=== PATIENT | female | born 1990 | race Hispanic/Latino ===

== ENCOUNTER → 2023-11-26 13:39 | Outpatient (REF) | payer MEDICAID, SELFPAY | LOC: CPAP 13:39 | PROVIDERS: ATTENDING PHYSICIAN Nurse Practitioner Adult Health | DX: N76.0 Acute vaginitis (principal); Z12.4 Encounter for screening for malignant neoplasm of cervix | CPT/HCPCS: 87491; 87591; 87624 ==

== ENCOUNTER 2024-08-26 20:36 | Emergency (ER) | payer SELFPAY ==
[2024-08-26 20:54] VITALS: BP 143/93
[2024-08-26 22:37] VITALS: BP 142/94
--- NOTE | 2024-08-26 23:37 | ED.GENMED ---
History of Present Illness
General
Chief Complaint: Breathing Problem
Time Seen by Provider: 08/26/24 23:37
History of Present Illness
History of Present Illness:
TIME OF INITIAL ENCOUNTER: 11:40 PM
HPI: Patient presents due to shortness of breath. She has a history of asthma. She could not use the nebulizer that she has at home as she has no albuterol. She states that steroids have helped her when she got like this in the past. She does
have an associated headache.
EXAM:
GENERAL: Well appearing in no distress
HEENT: Moist oral mucosa
CARDIOVASCULAR: No murmurs, normal heart rate, regular rhythm, No chest wall tenderness
PULMONARY: Very minimal increased work of breathing, breath sounds are just slightly diminished equally with no wheeze
ABDOMEN: Soft with no peritoneal signs, no tenderness
NEUROLOGIC: Excellent strength all extremities, no coordination deficits
PSYCHIATRIC: Appropriate mental status, normal insight and judgement
EXTREMITIES: Nontender, no edema, moves all extremities equally
SKIN: No rash, no lesions
NUMBER AND COMPLEXITY OF PROBLEMS ADDRESSED AT THE ENCOUNTER
� Chronic conditions affecting care: Asthma
� Acute Exacerbation and/or Progression of Chronic Illness: This is an acute problem
� Differential Diagnosis includes: Asthma exacerbation, pneumonia, bronchitis, reactive airway disease
AMOUNT AND/OR COMPLEXITY OF DATA TO BE REVIEWED AND ANALYZED
� I performed an independent evaluation of and my interpretation is:
EKG:
CT:
X-rays: Chest x-ray shows no acute abnormality
Laboratory Studies: Urinalysis shows no blood or signs of infection.
Other:
� Review of other/old records: The patient was seen here in 2021 with a viral syndrome and also in 2019 with an asthma exacerbation related to COVID
� Clinical information was obtained by an independent historian: Spoke to mother at bedside
� Prescriptions/Medications Considered but not given:
� Further testing considered but not performed:
RISK OF COMPLICATIONS AND/OR MORBIDITY OR MORTALITY OF PATIENT MANAGEMENT
� Social determinants of health affecting care: Lives at home
� Discussion with other providers:
� Escalation of care including admission/observation vs risk of discharge considered: The patient primarily is concerned of shortness of breath related to asthma. She is not wheezing but does have slightly decreased breath
sounds. She was given a DuoNeb we also started her on steroids as she states this has helped her in the past. Chest x-ray unremarkable.
ANY OTHER UPDATES:
12:30 AM: The patient now reports some chills�I checked her temperature personally and was 98.7 Fahrenheit. She also reports some vague discomfort in the right lower/right flank region and she was concerned about the possibly of UTI�will obtain
urinalysis.
1 AM: Patient requests another DuoNeb. However, she appears very comfortable regarding her respiratory status.
1:30 AM: Well feels improved. No increased work of breathing.
Past History
Past History
ED Past Medical History: Asthma
ED Past Surgical History: Appendectomy
Social History
Tobacco: Non-smoker
Alcohol: None
Drug: None
Living: with family
Phy Exam
Physical Exam
Physical Exam:
See HPI
Course
Orders/Labs/Results
Orders:
Orders
08/26/24 20:58
CR Chest - 2 Views Urgent
Comment:
Reason For Exam: shortness of breath
08/26/24 23:45
Ipratropium/Albuterol Sulfate [Duoneb] 3 ml INH R NOW STA
Prednisone [Deltasone] 50 mg PO NOW STA
08/27/24 00:15
Acetaminophen [Tylenol] 1,000 mg .ROUTE .STK-MED ONE
Acetaminophen [Tylenol] 1,000 mg PO NOW STA
08/27/24 01:04
Urinalysis Reflex To Culture Urgent
Date Specimen was Collected: 08/27/24
Time Specimen was Collected: 01:00
02/07/25 01:05
Ipratropium/Albuterol Sulfate [Duoneb] 3 ml .ROUTE .STK-MED ONE
Ipratropium/Albuterol Sulfate [Duoneb] 3 ml INH R NOW STA
Vital Signs
Initial and Last Documented VS:
Initial Vital Signs
Temp Pulse Resp BP Pulse Ox
37.3 C 100 18 143/93 95
08/26/24 20:54 08/26/24 20:54 08/26/24 20:54 08/26/24 20:54 08/26/24 20:54
Last Documented Vital Signs
Temp Pulse Resp BP Pulse Ox
37.3 C 100 18 137/61 99
08/26/24 20:54 08/27/24 00:19 08/27/24 00:19 08/27/24 00:19 08/27/24 00:19
*Critical Care Note
Total Time (30-74mins, 75-104mins- exclusive of procedures): Not Applicable
ED Attending Note
-
Portions of this chart may have been created with voice recognition software.� Occasional wrong word or��sound alike� substitutions may have occurred due to the inherent limitations of voice recognition software.
Discharge Plan
Departure
Patient Disposition: Home (Routine Discharge)
Date of Disposition: 08/27/24
Time of Disposition: 02:16
Patient with high blood pressure during this ER visit?: Yes
Discharge Problem:
Asthma exacerbation
Instructions: Asthma, Adult (DC), BLOOD PRESSURE
Prescriptions:
New
prednisone 50 mg tablet
50 mg PO DAILY Qty: 4 0RF
albuterol sulfate 2.5 mg /3 mL (0.083 %) solution for nebulization
2.5 mg inhalation Q6H PRN (Reason: shortness of breath or wheezing) Qty: 90 0RF
albuterol sulfate 90 mcg/actuation HFA aerosol inhaler
2 puff inhalation Q6H PRN (Reason: shortness of breath or wheezing) Qty: 8.5 0RF
No Action
ascorbic acid (vitamin C) [Vitamin C] 500 MG tablet
500 mg PO DAILY
ibuprofen 400 MG tablet
400 mg PO HSPRN PRN (Reason: body aches)
albuterol sulfate 2.5 MG/3 ML solution for nebulization
2.5 mg inhalation R QID
acetaminophen 325 MG tablet
650 mg PO Q4HPRN PRN (Reason: fever >/= 100.4F, SHANNON,mild pain) 0RF
ascorbic acid (vitamin C) [Vitamin C] 500 MG tablet
500 mg PO DAILY Qty: 30 0RF
zinc sulfate 220 MG capsule
220 mg PO DAILY Qty: 30 0RF
melatonin 5 MG tablet
5 mg PO HS Qty: 14 0RF
albuterol sulfate 1.25 MG/3 ML solution for nebulization
1.25 mg inhalation Q6H PRN (Reason: wheezing) Qty: 100 0RF
methylprednisolone [Medrol (Raf)] 4 MG tablets,dose pack
4 tab PO . DIRECT Qty: 1 0RF
cholecalciferol (vitamin D3) 1,000 UNITS tablet
1,000 units PO DAILY Qty: 30 0RF
apixaban [Eliquis] 2.5 MG tablet
2.5 mg PO BID Qty: 28 0RF
albuterol sulfate 5 MG/ML solution for nebulization
5 mg inhalation PRN PRN (Reason: wheezing) Qty: 100 0RF
Referrals:
NONE,* [Family Provider] -
Activity Restrictions/Additional Instructions:
Urinalysis shows no sign of infection or blood. Chest x-ray is clear with no sign of pneumonia. I sent a prescription for steroids to your pharmacy. I also sent a prescription for albuterol nebulized and inhaler form.
Interventions
Interventions:
*Risk Screen - Suicide Last Done: 08/26/24 20:54
*General Assessment Last Done: 08/26/24 20:54
*Neglect/Abuse Screening Last Done: 08/26/24 20:54
ED- Fall Risk Assessment Last Done: 08/27/24 00:20
*ED COVID-19 Vaccine History Last Done: 08/27/24 00:18
ED- Cardiac Assessment Last Done: 08/27/24 00:20
ED- Pulmonary Assessment Last Done: 08/27/24 00:20
Discharge Date and Time
Print Language: ALBANIAN
[2024-08-26] MEDS: DELTASONE 50 MG PO (23:49)
[2024-08-26] MEDS: DUONEB 3 ML INH (23:49)
[2024-08-27] MEDS: TYLENOL 1000 MG PO (00:16)
[2024-08-27 00:18] VITALS: BMI 39.0
[2024-08-27 00:19] VITALS: BP 137/61
[2024-08-27] MEDS: DUONEB 3 ML INH (01:06)
[2024-08-27 01:10] LABS: Urine Albumin Negative (Neg - Trace); Urine Bilirubin Negative (Negative); Urine Character Slightly Cloudy (Clear); Urine Color Yellow; Urine Glucose Negative (Negative); Urine Ketone Negative (Negative); Urine Leukocyte Negative (Negative); Urine Nitrite Negative (Negative); Urine Occult Blood Negative (Negative); Urine Specific Gravity 1.005 (<1.030); Urine Urobilinogen Negative (Neg - 1+)
== END 2024-08-27 02:41 | disposition home or self-care (01) ==
LOC: EMR 20:36
PROVIDERS: EMERGENCY PHYSICIAN Emergency Medicine
DX: J45.901 Unspecified asthma with (acute) exacerbation (principal); Z90.49 Acquired absence of other specified parts of digestive tract
CPT/HCPCS: 99284; 94640; 71046; 81003

== ENCOUNTER 2024-12-19 19:36 | Emergency (ER) | payer MEDICAID, SELFPAY ==
[2024-12-19 19:38] VITALS: BP 101/74
--- NOTE | 2024-12-19 21:01 | ED.GENMED ---
History of Present Illness
General
Chief Complaint: Musculo-Skeletal Complaint
Source: patient
Exam Limitations: none
Time Seen by Provider: 12/19/24 20:09
Nursing documentation reviewed up to this point in time: agreed with
History of Present Illness
History of Present Illness:
34-year-old female past medical history of asthma presenting to the emergency department today after being diagnosed with a distal tib-fib fracture diagnosed at [facility]. Apparently was ready for surgery and ended up leaving [facility] and came
directly to the ER here requesting surgery to her ankle. She denies any numbness weakness is currently splinted
Past History
Past History
ED Past Medical History: Asthma
ED Past Surgical History: Appendectomy
Social History
Tobacco: Non-smoker
Alcohol: None
Drug: None
Living: with family
Review of Systems
Review of Systems
Allergies reviewed?: Yes
All Other Systems: ROS reviewed and negative except as documented in HPI and ROS
Phy Exam
Physical Exam
Physical Exam:
GENERAL: Alert , in no apparent distress
EYE: pupils equal and reactive
NECK: Supple, no significant adenopathy.
ENT: o/p clr, mmm.
CARDIAC: Regular rate and rhythm .
LUNGS: Clear breath sounds bilaterally, no acute respiratory distress, no wheezes/rales/rhonchi
ABDOMEN: Soft, without focal tenderness, no r/g, no cvat
NEUROLOGICAL: Alert and oriented, no focal neuro deficits
SKIN: Warm and dry, skin intact.
MUSCULOSKELETAL: Splinted left lower extremity toes are fully mobile normal skin to sensation no edema, well perfused.
PSYCH: Normal and appropriate interaction.
Course
Vital Signs
Initial and Last Documented VS:
Initial Vital Signs
Temp Pulse Resp BP Pulse Ox
98.4 F 101 22 101/74 100
12/19/24 19:38 12/19/24 19:38 12/19/24 19:38 12/19/24 19:38 12/19/24 19:38
Last Documented Vital Signs
Temp Pulse Resp BP Pulse Ox
98.4 F 101 22 101/74 100
12/19/24 19:38 12/19/24 19:38 12/19/24 19:38 12/19/24 19:38 12/19/24 19:38
MDM/Problems Addressed
MDM/Problems Addressed:
34-year-old female presenting with concerns of a distal tib-fib fracture discovered at [facility] this morning. X-rays reviewed with good reduction currently splinted neurovascular intact. Case discussed with Ortho recommending close
outpatient follow-up. Return precautions given.
*Critical Care Note
Total Time (30-74mins, 75-104mins- exclusive of procedures): Not Applicable
ED Attending Note
-
Portions of this chart may have been created with voice recognition software.� Occasional wrong word or��sound alike� substitutions may have occurred due to the inherent limitations of voice recognition software.
Discharge Plan
Departure
Patient Disposition: Home (Routine Discharge)
Date of Disposition: 12/19/24
Time of Disposition: 21:04
Patient with high blood pressure during this ER visit?: No
Condition: Good
Covid-19: Not Applicable
Discharge Problem:
Ankle fracture
Instructions: Ankle Fracture (DC)
Prescriptions:
No Action
ascorbic acid (vitamin C) [Vitamin C] 500 MG tablet
500 mg PO DAILY
ibuprofen 400 MG tablet
400 mg PO HSPRN PRN (Reason: body aches)
albuterol sulfate 2.5 MG/3 ML solution for nebulization
2.5 mg inhalation R QID
acetaminophen 325 MG tablet
650 mg PO Q4HPRN PRN (Reason: fever >/= 100.4F, SHANNON,mild pain) 0RF
ascorbic acid (vitamin C) [Vitamin C] 500 MG tablet
500 mg PO DAILY Qty: 30 0RF
zinc sulfate 220 MG capsule
220 mg PO DAILY Qty: 30 0RF
melatonin 5 MG tablet
5 mg PO HS Qty: 14 0RF
albuterol sulfate 1.25 MG/3 ML solution for nebulization
1.25 mg inhalation Q6H PRN (Reason: wheezing) Qty: 100 0RF
methylprednisolone [Medrol (Raf)] 4 MG tablets,dose pack
4 tab PO . DIRECT Qty: 1 0RF
cholecalciferol (vitamin D3) 1,000 UNITS tablet
1,000 units PO DAILY Qty: 30 0RF
apixaban [Eliquis] 2.5 MG tablet
2.5 mg PO BID Qty: 28 0RF
albuterol sulfate 5 MG/ML solution for nebulization
5 mg inhalation PRN PRN (Reason: wheezing) Qty: 100 0RF
prednisone 50 mg tablet
50 mg PO DAILY Qty: 4 0RF
albuterol sulfate 2.5 mg /3 mL (0.083 %) solution for nebulization
2.5 mg inhalation Q6H PRN (Reason: shortness of breath or wheezing) Qty: 90 0RF
albuterol sulfate 90 mcg/actuation HFA aerosol inhaler
2 puff inhalation Q6H PRN (Reason: shortness of breath or wheezing) Qty: 8.5 0RF
Referrals:
Cirilo Khan DPM [Active, Podiatry]
Karen Hull NP [Family Provider, Internal Medicine]
Activity Restrictions/Additional Instructions:
You came to the emergency department today with concerns of an ankle fracture. Please follow-up with the ankle doctor within the next week. Return for any worsening, new or concerning symptoms.
Interventions
Interventions:
*Risk Screen - Suicide Last Done: 12/19/24 19:38
*General Assessment Last Done: 12/19/24 19:38
*Neglect/Abuse Screening Last Done: 12/19/24 19:38
*ED- Fall Risk Assessment Last Done: 12/19/24 20:34
*ED COVID-19 Vaccine History Last Done: 12/19/24 20:34
ED-Musculoskeletal Assessment Last Done: 12/19/24 20:34
Discharge Date and Time
Print Language: THAI
== END 2024-12-19 21:26 | disposition home or self-care (01) ==
LOC: EMR 19:36
PROVIDERS: EMERGENCY PHYSICIAN Emergency Medicine; FAMILY PHYSICIAN Nurse Practitioner Adult Health
DX: S82.892A Other fracture of left lower leg, initial encounter for closed fracture (principal); X58.XXXA Exposure to other specified factors, initial encounter; J45.909 Unspecified asthma, uncomplicated
CPT/HCPCS: 99282

== ENCOUNTER → 2025-02-14 15:42 | Outpatient (REF) | payer OTHER, SELFPAY | LOC: WDC 15:42 | PROVIDERS: ATTENDING PHYSICIAN Nurse Practitioner Adult Health | DX: N64.4 Mastodynia (principal) | CPT/HCPCS: 77062; 77066 ==

== ENCOUNTER 2025-03-09 09:10 | Outpatient (RCR) | payer OTHER, SELFPAY | END 2025-03-09 23:59 | disposition home or self-care (01) | LOC: RPT 09:10 | PROVIDERS: ATTENDING PHYSICIAN Orthopaedic Surgery Orthopaedic Trauma; FAMILY PHYSICIAN Nurse Practitioner Adult Health | DX: Z47.89 Encounter for other orthopedic aftercare (principal); R26.89 Other abnormalities of gait and mobility; R26.2 Difficulty in walking, not elsewhere classified; M62.81 Muscle weakness (generalized); Z73.6 Limitation of activities due to disability; Z87.81 Personal history of (healed) traumatic fracture; Z98.890 Other specified postprocedural states | CPT/HCPCS: 97110; 97140; 97163 ==

== ENCOUNTER 2025-04-18 09:56 | Outpatient (RCR) | payer OTHER, SELFPAY | END 2025-04-18 23:59 | disposition home or self-care (01) | LOC: RPT 09:56 | PROVIDERS: ATTENDING PHYSICIAN Orthopaedic Surgery Orthopaedic Trauma; FAMILY PHYSICIAN Nurse Practitioner Adult Health | DX: Z47.89 Encounter for other orthopedic aftercare (principal); R26.89 Other abnormalities of gait and mobility; R26.2 Difficulty in walking, not elsewhere classified; M62.81 Muscle weakness (generalized); Z73.6 Limitation of activities due to disability; Z87.81 Personal history of (healed) traumatic fracture; Z98.890 Other specified postprocedural states | CPT/HCPCS: 97010; 97110; 97112; 97140; 97530 ==

== ENCOUNTER 2025-05-09 10:21 | Outpatient (RCR) | payer OTHER, SELFPAY | END 2025-05-16 23:59 | disposition home or self-care (01) | LOC: RPT 10:21 | PROVIDERS: ATTENDING PHYSICIAN Orthopaedic Surgery Orthopaedic Trauma; FAMILY PHYSICIAN Nurse Practitioner Adult Health | DX: Z47.89 Encounter for other orthopedic aftercare (principal); R26.89 Other abnormalities of gait and mobility; R26.2 Difficulty in walking, not elsewhere classified; M62.81 Muscle weakness (generalized); Z73.6 Limitation of activities due to disability; Z87.81 Personal history of (healed) traumatic fracture | CPT/HCPCS: 97110; 97112; 97140; 97530 ==

== ENCOUNTER 2025-05-25 10:45 | Outpatient (RCR) | payer OTHER, SELFPAY | END 2025-05-25 23:59 | disposition home or self-care (01) | LOC: RPT 10:45 | PROVIDERS: ATTENDING PHYSICIAN Orthopaedic Surgery Orthopaedic Trauma; FAMILY PHYSICIAN Nurse Practitioner Adult Health | DX: Z47.89 Encounter for other orthopedic aftercare (principal); R26.89 Other abnormalities of gait and mobility; R26.2 Difficulty in walking, not elsewhere classified; M62.81 Muscle weakness (generalized); Z73.6 Limitation of activities due to disability; Z87.81 Personal history of (healed) traumatic fracture | CPT/HCPCS: 97112; 97140 ==

== ENCOUNTER 2025-06-13 13:18 | Emergency (ER) | payer OTHER, SELFPAY ==
[2025-06-13 13:21] VITALS: BP 128/78
--- NOTE | 2025-06-13 14:22 | ED.GENMED ---
History of Present Illness
General
Chief Complaint: Problems
Source: patient
Exam Limitations: none
Time Seen by Provider: 06/13/25 14:11
Nursing documentation reviewed up to this point in time: agreed with
History of Present Illness
History of Present Illness:
Patient to the emergency department for evaluation of pelvic cramping and vaginal bleeding. She reports she is approximately 8 weeks . 3 para 1 (1AB,1miscarriage). Symptoms started this morning. She denies any fever/chills,
nausea/vomiting/diarrhea. She has not been evaluated by OB for this . Brought self to the emergency department for evaluation.
Past History
Past History
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
ED Past Surgical History: Appendectomy
Social History
Tobacco: Non-smoker
Alcohol: None
Drug: None
Living: with family
Review of Systems
Review of Systems
Allergies reviewed?: Yes
All Other Systems: ROS reviewed and negative except as documented in HPI and ROS
Constitutional: Reports no symptoms
EENT: Reports no symptoms
Respiratory: Reports no symptoms
Cardiac: Reports no symptoms
ABD/GI: Reports no symptoms
: Reports bleeding (Vaginal bleeding, pelvic cramping)
Musculoskeletal: Reports no symptoms
Skin: Reports no symptoms
Neurological: Reports no symptoms
Psychiatric: Reports no symptoms
Phy Exam
General Physical Exam
General Presentation: mild distress
General age: appears stated age
General Skin: warm and dry
General Habitus: normal
General Mental: alert
Gastrointestinal Exam
Gastrointestinal Exam: non tender and soft
Genitourinary Exam Female
Exam Female: no CMT, no lesions, no mass and vaginal bleeding (Mild)
Vaginal Exam: blood (Mild bleeding)
Vaginal Bleeding: minimal
Visual exam of cervix: os closed
Musculoskeletal Exam
Musculoskeletal Exam: full ROM and neuro vasc intact
Skin Exam
Skin Exam: normal color, warm/dry and no rash
Psychiatric Exam
Psychiatric Exam: normal mood/affect
Course
Orders/Labs/Results
Orders:
Orders
06/13/25 14:21
US W Transvaginal Urgent
Reason For Exam: bleeding
06/13/25 14:49
ABO [Blood Group&Type] Urgent
Complete Blood Count/With Diff Urgent
Comprehensive Metabolic Panel Urgent
HCG, Beta Quantitative [Beta HCG Quantitative] Urgent
Is this a screen?: No
06/13/25 16:59
Urinalysis Reflex To Culture Urgent
Date Specimen was Collected: 06/13/25
Time Specimen was Collected: 16:55
Urine Microscopic Reflex Cult Urgent
Urine Culture Urgent
SCOTT Source: U
Specimen Description:
Date Specimen was Collected: 06/13/25
Time Specimen was Collected: 16:55
Abnormal Lab Results
06/13/25 06/13/25
14:49 16:59
Absolute Neuts (auto) 7.6 H 10^3/uL
(1.4-6.5)
Neutrophils % 76.6 H %
(42.2-75.2)
Lymphocytes % 15.8 L %
(20.5-51.1)
Calcium 7.6 L mg/dl
(8.4-10.2)
Urine Ketones 3+ A
(Negative)
Ur Occult Blood Reflex 4+ A
(Negative)
Urine RBC 30-40 A /HPF
(0-2)
Urine Bacteria (Reflex) Moderate A
(Negative)
06/13/25 14:49
06/13/25 14:49
Vital Signs
Initial and Last Documented VS:
Initial Vital Signs
Temp Pulse Resp BP Pulse Ox
98.2 F 78 16 128/78 98
06/13/25 13:21 06/13/25 13:21 06/13/25 13:21 06/13/25 13:21 06/13/25 13:21
Last Documented Vital Signs
Temp Pulse Resp BP Pulse Ox
98.2 F 97 18 121/73 96
06/13/25 13:21 06/13/25 18:33 06/13/25 18:33 06/13/25 18:33 06/13/25 18:33
Information
Weeks gestation: Weeks: (8)
Location: N/A
*Radiology
Radiology exam reviewed: radiology read reviewed
*Pulse Oximetry
SaO2: 98
Oxygen Mode of Delivery: Room air
Patient hypoxic: no
*Critical Care Note
Total Time (30-74mins, 75-104mins- exclusive of procedures): Not Applicable
Update Note
Update Note:
Patient to the emergency department for eval of vaginal bleeding. She reports she is approximately 8 weeks . Started this a.m. with pelvic cramping and light vaginal bleeding. She denies passing any clots. She denies fever or chills.
Vital signs are stable she remains afebrile. CBC and CMP within normal limits. Beta-hCG 1225.00 -low for 8 weeks. Pelvic exam completed minimal amount of blood noted in vagina, no blood clots noted ultrasound completed and report reviewed. No
definitive intrauterine identified. Discussed lab results and ultrasound report with patient. Concerning for miscarriage however low hCG and nonvisible IUP could be related to early . She will need to have her hCG rechecked in
2 days and close follow-up with [facility] [employer]. She follows with the group at [place] and will call in the a.m. to schedule an appointment for Friday for repeat hCG and evaluation. She was given instructions on signs and symptoms to return to the
emergency department and she is agreeable with this plan.
ED Attending Note
-
Portions of this chart may have been created with voice recognition software.� Occasional wrong word or��sound alike� substitutions may have occurred due to the inherent limitations of voice recognition software.
Discharge Plan
Departure
Patient Disposition: Home (Routine Discharge)
Date of Disposition: 06/13/25
Time of Disposition: 18:08
Patient with high blood pressure during this ER visit?: No
Condition: Good
Covid-19: Not Applicable
Discharge Problem:
Vaginal bleeding in
Instructions: Miscarriage (DC)
Prescriptions:
No Action
ascorbic acid (vitamin C) [Vitamin C] 500 MG tablet
500 mg PO DAILY
ibuprofen 400 MG tablet
400 mg PO HSPRN PRN (Reason: body aches)
albuterol sulfate 2.5 MG/3 ML solution for nebulization
2.5 mg inhalation R QID
acetaminophen 325 MG tablet
650 mg PO Q4HPRN PRN (Reason: fever >/= 100.4F, SHANNON,mild pain) 0RF
ascorbic acid (vitamin C) [Vitamin C] 500 MG tablet
500 mg PO DAILY Qty: 30 0RF
zinc sulfate 220 MG capsule
220 mg PO DAILY Qty: 30 0RF
melatonin 5 MG tablet
5 mg PO HS Qty: 14 0RF
albuterol sulfate 1.25 MG/3 ML solution for nebulization
1.25 mg inhalation Q6H PRN (Reason: wheezing) Qty: 100 0RF
methylprednisolone [Medrol (Raf)] 4 MG tablets,dose pack
4 tab PO . DIRECT Qty: 1 0RF
cholecalciferol (vitamin D3) 1,000 UNITS tablet
1,000 units PO DAILY Qty: 30 0RF
apixaban [Eliquis] 2.5 MG tablet
2.5 mg PO BID Qty: 28 0RF
albuterol sulfate 5 MG/ML solution for nebulization
5 mg inhalation PRN PRN (Reason: wheezing) Qty: 100 0RF
prednisone 50 mg tablet
50 mg PO DAILY Qty: 4 0RF
albuterol sulfate 2.5 mg /3 mL (0.083 %) solution for nebulization
2.5 mg inhalation Q6H PRN (Reason: shortness of breath or wheezing) Qty: 90 0RF
albuterol sulfate 90 mcg/actuation HFA aerosol inhaler
2 puff inhalation Q6H PRN (Reason: shortness of breath or wheezing) Qty: 8.5 0RF
Referrals:
NONE,* [Family Provider, Internal Medicine]
Activity Restrictions/Additional Instructions:
As we discussed, no intrauterine was visualized. This may be due to to a possible miscarriage, as you have reported vaginal bleeding since this morning. You will need to have your HCG level rechecked in 2 days. Please call your
metal [facility] pipe maker in the a.m. to schedule this blood work and a follow-up appointment. A disc copy of your ultrasound has been provided to you. Return to the emergency department immediately for fever/chills increasing pain, worsening bleeding,
weakness, lethargy, or for any further concerns
Interventions
Interventions:
*Risk Screen - Suicide Last Done: 06/13/25 13:21
*General Assessment Last Done: 06/13/25 13:21
*Neglect/Abuse Screening Last Done: 06/13/25 13:21
*ED- Fall Risk Assessment Last Done: 06/13/25 16:52
*ED COVID-19 Vaccine History Last Done: 06/13/25 16:52
*ED Influenza Vaccine History Last Done: 06/13/25 16:52
*Nursing Disposition Last Done: 06/13/25 18:37
ED-Female Genitourinary Assessment Last Done: 06/13/25 16:50
Discharge Date and Time
Discharge Date/Time: 06/13/25 18:38
Print Language: HONDURAN
[2025-06-13 14:53] VITALS: BMI 41.8
[2025-06-13 15:07] LABS: Hematocrit 39.2 % (37.0-47.0); Hemoglobin 13.3 g/dL (12.0-16.0); Mean Corp Hgb Conc. 33.9 g/dL (33.0-37.0); Mean Corpuscular Volume 83.8 fL (81.0-99.0); Nucleated Red Blood Cells % 0 %; Platelet Count 368 10^3/uL (130-400); Red Cell Dist. Width 13.3 % (11.5-14.5)
[2025-06-13 15:19] LABS: ALT (SGPT) 20 U/L (0-35); AST (SGOT) 23 U/L (14-36); Albumin 4.3 g/dl (3.5-5.0); Alkaline Phosphatase 90 U/L (38-126); Blood Urea Nitrogen 13 mg/dl (7-17); Calcium 7.6 mg/dl (8.4-10.2); Carbon Dioxide 28 mmol/L (22-30); Chloride 101 mmol/L (98-107); Estimated Creatinine Clearance > 125 ml/min; Glucose 93 mg/dl (70-99); Potassium 4.2 mmol/L (3.5-5.1); Sodium 136 mmol/L (135-145); Total Protein 7.7 g/dl (6.3-8.2); eGFR > 60.00
[2025-06-13 15:35] LABS: Beta HCG Quantitative 1225.00 mIU/ml
[2025-06-13 16:52] VITALS: BP 136/88
[2025-06-13 17:11] LABS: Urine Character Clear (Clear)
[2025-06-13 17:20] LABS: Urine Red Blood Cell 30-40 /HPF (0-2); Urine White Cell 0-2 /HPF (0-5)
[2025-06-13 18:33] VITALS: BP 121/73
== END 2025-06-13 18:38 | disposition home or self-care (01) ==
LOC: EMR 13:18
PROVIDERS: Nurse Practitioner; EMERGENCY PHYSICIAN Emergency Medicine
DX: O46.91 Antepartum hemorrhage, unspecified, first trimester (principal); O99.511 Diseases of the respiratory system complicating pregnancy, first trimester; J45.909 Unspecified asthma, uncomplicated; Z90.49 Acquired absence of other specified parts of digestive tract; Z3A.08 8 weeks gestation of pregnancy
CPT/HCPCS: 99284; 76801; 76817; 80053; 81003; 81015; 84702; 85025; 86900; 86901; 87086